=== PATIENT | male | born 1970 | race Caucasian/White ===

== ENCOUNTER 2019-12-18 07:38 | Inpatient (IN) | payer MEDICAID ==
[~2019-12-18] VITALS: Ht 160 cm; Wt 63.0 kg
[2019-12-18] MEDS ORDERED: INSULIN (07:54)
[2019-12-18 09:37] LABS: BASOPHILS % 1.8 % (0.0-2.0); EOSINOPHILS % 2.8 % (0.0-5.0); HEMATOCRIT. 38.2 % (42.0-52.0); HEMOGLOBIN. 12.8 g/dL (14.0-18.0); MEAN CORPUSCULAR HEMOGLOBIN 31.3 pg (28.0-32.0); MEAN CORPUSCULAR VOLUME 93.1 fL (80.0-94.0); MEAN PLATELET VOLUME 8.8 fl (7.4-10.4); MONOCYTES % 7.5 % (2.0-8.0); NEUTROPHILS % 57.9 % (40.0-76.0); PLATELET 251 x1000/uL (130-400); RED CELL DISTRIBUTION WIDTH 15.3 % (11.6-14.6)
[2019-12-18 09:41] LABS: CHLORIDE 99 mEq/L (98-107)
[2019-12-18] MEDS ORDERED: PIPERACILLIN SODIUM/TAZOBACTAM 4.5 G in DEXT 5% WATER 100 ML IV SCH (10:45)
[2019-12-18] MEDS ORDERED: ACETAMINOPHEN 325MG TABLET PO PRN (12:00)
[2019-12-18] MEDS ORDERED: IPRATROPIUM/ALBUTEROL 0.5-3(2.5)MG/3ML NEB HHN PRN (12:00)
[2019-12-18] MEDS ORDERED: PIPERACILLIN/TAZ 3.375G PREMIX 50 ML IV SCH (12:00)
[2019-12-18] MEDS ORDERED: CLONIDINE 0.1MG TABLET PO PRN ×2 (12:00→20:45)
[2019-12-18] MEDS ORDERED: ONDANSETRON HCL 4MG/2ML INJ IV PRN (12:00)
[2019-12-18 12:03] LABS: PHOSPHORUS 4.3 mg/dL (2.5-4.9)
[2019-12-18 14:21] LABS: CLARITY URINE CLEAR (CLEAR); COLOR URINE YELLOW (YELLOW); KETONES URINE NEGATIVE (NEGATIVE); LEUKOCYTE ESTERASE URINE NEGATIVE (NEGATIVE); NITRITE URINE NEGATIVE (NEGATIVE); OCCULT BLOOD URINE NEGATIVE (NEGATIVE); PROTEIN URINE 4+ (NEGATIVE); SPECIFIC GRAVITY URINE 1.017 (1.005-1.030); UROBILINOGEN URINE 0.2 E.U./dL (0.2-1.0)
[2019-12-18 14:30] VITALS: BP 141/74
[2019-12-18 15:40] VITALS: BP 141/74
[2019-12-18 16:00] VITALS: BP 138/79
[2019-12-18] MEDS ORDERED: HYDR-4135 MT (17:26)
[2019-12-18] MEDS ORDERED: CALC667T2 PO (17:26)
[2019-12-18] MEDS ORDERED: LISI40TA4 PO (17:26)
[2019-12-18] MEDS ORDERED: NEPVIT MT (17:26)
[2019-12-18] MEDS ORDERED: AMLO10TA80 PO (17:26)
[2019-12-18] MEDS ORDERED: METO-539 PO (17:26)
[2019-12-18] MEDS ORDERED: PIPERACILLIN/TAZOBACTAM 2.25 G in DEXTROSE 5% WATER 50 ML IV SCH (18:00)
[2019-12-18 18:50] VITALS: BP 138/79
[2019-12-18 20:09] VITALS: BP 174/77
[2019-12-18] MEDS ORDERED: DEXTROSE 50% WATER 50ML SYRINGE IV PRN (20:15)
[2019-12-18] MEDS: PIPERACILLIN/TAZOBACTAM 2.25 G in DEXTROSE 5% WATER 50 ML IV SCH (20:30)
[2019-12-18] MEDS: BLOOD SUGAR DIAGNOSTIC STRIP TEST SCH (20:34)
[2019-12-18] MEDS: INSULIN LISPRO 100 UNITS/ML SUBCUT SCH (20:34)
[2019-12-18] MEDS: HYDRALAZINE HCL 50MG TABLET PO SCH (21:05)
[2019-12-18] MEDS: LISINOPRIL 40MG TABLET PO SCH (21:06)
[2019-12-18] MEDS: HEPARIN 5000 UNITS/ML VIAL SUBCUT SCH (21:07)
[2019-12-19 00:28] VITALS: BP 131/69
[2019-12-19] MEDS: PIPERACILLIN/TAZOBACTAM 2.25 G in DEXTROSE 5% WATER 50 ML IV SCH ×4 (01:59→21:06)
[2019-12-19 04:00] VITALS: BP 127/70
[2019-12-19 06:03] LABS: BASOPHILS % 1.2 % (0.0-2.0); EOSINOPHILS % 2.9 % (0.0-5.0); HEMATOCRIT. 37.9 % (42.0-52.0); HEMOGLOBIN. 12.6 g/dL (14.0-18.0); LYMPHOCYTES % 35.4 % (20.0-50.0); MEAN CORPUSCULAR VOLUME 93.6 fL (80.0-94.0); MEAN PLATELET VOLUME 8.9 fl (7.4-10.4); MONOCYTES % 5.9 % (2.0-8.0); NEUTROPHILS % 54.6 % (40.0-76.0); PLATELET 256 x1000/uL (130-400); RED BLOOD CELL COUNT 4.05 mill/uL (4.7-6.1); RED CELL DISTRIBUTION WIDTH 15.6 % (11.6-14.6)
[2019-12-19 06:24] LABS: CHLORIDE 100 mEq/L (98-107)
[2019-12-19 06:32] LABS: HDL CHOLESTEROL 56 mg/dL (40-59)
[2019-12-19 06:34] LABS: PHOSPHORUS 4.9 mg/dL (2.5-4.9)
[2019-12-19 06:36] LABS: LDL CHOLESTEROL 74 mg/dL (5-100)
[2019-12-19] MEDS: BLOOD SUGAR DIAGNOSTIC STRIP TEST SCH ×4 (07:34→20:48)
[2019-12-19 08:00] VITALS: BP 168/74
[2019-12-19] MEDS: INSULIN LISPRO 100 UNITS/ML SUBCUT SCH ×4 (08:10→20:49)
[2019-12-19] MEDS ORDERED: MEDICATION NOT ON FORMULARY EA (Calcium Acetate (Phoslo) 667 MG) PO SCH (09:00)
[2019-12-19] MEDS: AMLODIPINE 10MG TABLET PO SCH (10:10)
[2019-12-19] MEDS: HEPARIN 5000 UNITS/ML VIAL SUBCUT SCH ×2 (10:10→21:07)
[2019-12-19] MEDS: LISINOPRIL 40MG TABLET PO SCH ×2 (10:11→16:17)
[2019-12-19] MEDS: FOLIC ACID/VITAMIN B COMP W-C TABLET PO SCH (10:11)
[2019-12-19] MEDS: CALCIUM ACETATE 667MG CAPSULE PO SCH ×2 (10:11→16:17)
[2019-12-19] MEDS: HYDRALAZINE HCL 50MG TABLET PO SCH ×3 (10:11→16:19)
[2019-12-19] MEDS: METOPROLOL TARTRATE 50MG TABLET PO SCH (10:12)
[2019-12-19 12:00] VITALS: BP 159/76
[2019-12-19 13:21] LABS: EOSINOPHILS % 2.2 % (0.0-5.0); HEMATOCRIT. 37.5 % (42.0-52.0); HEMOGLOBIN. 12.6 g/dL (14.0-18.0); LYMPHOCYTES % 30.4 % (20.0-50.0); MEAN CORPUSCULAR HEMOGLOBIN 31.4 pg (28.0-32.0); MEAN CORPUSCULAR VOLUME 93.6 fL (80.0-94.0); MONOCYTES % 5.7 % (2.0-8.0); NEUTROPHILS % 60.7 % (40.0-76.0); PLATELET 270 x1000/uL (130-400); RED BLOOD CELL COUNT 4.01 mill/uL (4.7-6.1); RED CELL DISTRIBUTION WIDTH 15.2 % (11.6-14.6)
[2019-12-19 13:32] LABS: CHLORIDE 98 mEq/L (98-107)
[2019-12-19 13:38] LABS: PHOSPHORUS 5.1 mg/dL (2.5-4.9)
[2019-12-19] MEDS ORDERED: SODIUM POLYSTYRENE SULFONATE 15 G/60 ML BOT PO SCH ×2 (15:00→19:00)
[2019-12-19 16:00] VITALS: BP 111/64
[2019-12-19 20:00] VITALS: BP 146/76
[2019-12-20] VITALS (7 sets, daily range): BP systolic 116–169; BP diastolic 65–89
[2019-12-20] MEDS: PIPERACILLIN/TAZOBACTAM 2.25 G in DEXTROSE 5% WATER 50 ML IV SCH ×4 (02:06→22:02)
[2019-12-20 05:41] LABS: BASOPHILS % 1.5 % (0.0-2.0); EOSINOPHILS % 2.8 % (0.0-5.0); HEMATOCRIT. 37.4 % (42.0-52.0); HEMOGLOBIN. 12.6 g/dL (14.0-18.0); LYMPHOCYTES % 32.4 % (20.0-50.0); MEAN CORPUSCULAR HEMOGLOBIN 31.3 pg (28.0-32.0); MEAN CORPUSCULAR VOLUME 92.8 fL (80.0-94.0); MEAN PLATELET VOLUME 8.6 fl (7.4-10.4); MONOCYTES % 6.9 % (2.0-8.0); NEUTROPHILS % 56.4 % (40.0-76.0); PLATELET 271 x1000/uL (130-400); RED BLOOD CELL COUNT 4.03 mill/uL (4.7-6.1); RED CELL DISTRIBUTION WIDTH 15.4 % (11.6-14.6)
[2019-12-20] MEDS: BLOOD SUGAR DIAGNOSTIC STRIP TEST SCH ×4 (06:38→21:55)
[2019-12-20 07:48] LABS: CHLORIDE 102 mEq/L (98-107)
[2019-12-20 08:01] LABS: PHOSPHORUS 6.5 mg/dL (2.5-4.9)
[2019-12-20] MEDS: FOLIC ACID/VITAMIN B COMP W-C TABLET PO SCH (08:16)
[2019-12-20] MEDS: CALCIUM ACETATE 667MG CAPSULE PO SCH ×4 (08:16→17:56)
[2019-12-20] MEDS: HYDRALAZINE HCL 50MG TABLET PO SCH ×3 (08:17→17:00)
[2019-12-20] MEDS: INSULIN LISPRO 100 UNITS/ML SUBCUT SCH ×4 (08:18→21:00)
[2019-12-20] MEDS: AMLODIPINE 10MG TABLET PO SCH (08:19)
[2019-12-20] MEDS: LISINOPRIL 40MG TABLET PO SCH ×2 (08:19→17:00)
[2019-12-20] MEDS: METOPROLOL TARTRATE 50MG TABLET PO SCH (08:19)
[2019-12-20] MEDS: HEPARIN 5000 UNITS/ML VIAL SUBCUT SCH ×2 (10:41→22:03)
[2019-12-20 11:58] LABS: HEMATOCRIT 37.8 % (42.0-52.0); HEMOGLOBIN 12.9 g/dL (14.0-18.0); MEAN CORPUSCULAR HEMOGLOBIN 31.8 pg (28.0-32.0); MEAN CORPUSCULAR VOLUME 93.5 fL (80.0-94.0); PLATELET 274 x1000/uL (130-400); RED BLOOD CELL COUNT 4.04 mill/uL (4.7-6.1); RED CELL DISTRIBUTION WIDTH 15.4 % (11.6-14.6)
[2019-12-20 12:20] LABS: PHOSPHORUS 5.7 mg/dL (2.5-4.9)
[2019-12-20] MEDS ORDERED: HEPARIN SODIUM 1,000 UNIT/1ML VIAL IV NR (19:00)
[2019-12-21] VITALS: BP 125/72
[2019-12-21] MEDS: PIPERACILLIN/TAZOBACTAM 2.25 G in DEXTROSE 5% WATER 50 ML IV SCH ×3 (02:12→13:04)
[2019-12-21 04:00] VITALS: BP 134/72
[2019-12-21] MEDS: BLOOD SUGAR DIAGNOSTIC STRIP TEST SCH ×3 (06:09→17:40)
[2019-12-21 08:00] VITALS: BP 152/83
[2019-12-21] MEDS: CALCIUM ACETATE 667MG CAPSULE PO SCH ×3 (08:05→18:05)
[2019-12-21] MEDS: LISINOPRIL 40MG TABLET PO SCH ×2 (08:05→17:00)
[2019-12-21] MEDS: FOLIC ACID/VITAMIN B COMP W-C TABLET PO SCH (08:05)
[2019-12-21] MEDS: AMLODIPINE 10MG TABLET PO SCH (08:06)
[2019-12-21] MEDS: HYDRALAZINE HCL 50MG TABLET PO SCH ×3 (08:06→17:00)
[2019-12-21] MEDS: METOPROLOL TARTRATE 50MG TABLET PO SCH (08:06)
[2019-12-21] MEDS: HEPARIN 5000 UNITS/ML VIAL SUBCUT SCH (08:07)
[2019-12-21] MEDS: INSULIN LISPRO 100 UNITS/ML SUBCUT SCH ×3 (08:11→18:06)
[2019-12-21 12:00] VITALS: BP 124/75
[2019-12-21 16:41] VITALS: BP 144/81
== END 2019-12-21 19:08 | disposition home health service (06) | DRG 364 ==
LOC: ER 07:38 → 7WST 11:34 → EDBEDREQSVC 12:30 → CANRESERV 12:51 → ENRESERV 12:51
PROVIDERS: ADMIT Internal Medicine; ATTEND Internal Medicine
PROC: 5A1D70Z Performance of Urinary Filtration, Intermittent, Less than 6 Hours Per Day (ICD-10-PCS; 2019-12-19)
PROC: 0KBW0ZZ Excision of Left Foot Muscle, Open Approach (ICD-10-PCS; principal; 2019-12-20)
DX: E11.621 Type 2 diabetes mellitus with foot ulcer (principal); L97.529 Non-pressure chronic ulcer of other part of left foot with unspecified severity; E11.22 Type 2 diabetes mellitus with diabetic chronic kidney disease; E11.42 Type 2 diabetes mellitus with diabetic polyneuropathy; D63.8 Anemia in other chronic diseases classified elsewhere; E78.5 Hyperlipidemia, unspecified; E11.51 Type 2 diabetes mellitus with diabetic peripheral angiopathy without gangrene; I13.11 Hypertensive heart and chronic kidney disease without heart failure, with stage 5 chronic kidney disease, or end stage renal disease; E87.5 Hyperkalemia; N18.6 End stage renal disease; Z99.2 Dependence on renal dialysis; Z89.429 Acquired absence of other toe(s), unspecified side; Z86.73 Personal history of transient ischemic attack (TIA), and cerebral infarction without residual deficits; Z79.899 Other long term (current) drug therapy; Z56.0 Unemployment, unspecified; Z79.4 Long term (current) use of insulin
CPT/HCPCS: 36415; 71045; 73620; 80048; 80053; 80061; 81003; 82962; 83036; 83735; 84100; 84443; 85025; 85027; 93970; 97166; 99285; J1644; J1815; J2543; J7060